=== PATIENT | female | born 1970 | race Caucasian/White ===

== ENCOUNTER 2016-10-30 11:48 | Emergency (ER) | payer OTHER ==
[2016-10-30] MEDS ORDERED: MAALOX/LIDO2%VISC/SIMETHICONE 40 ML BOT ONE (12:21)
== END 2016-10-30 13:23 | disposition home or self-care (01) ==
LOC: ED 11:48
DX: R10.10 Upper abdominal pain, unspecified (principal); F17.210 Nicotine dependence, cigarettes, uncomplicated